=== PATIENT | male | born 1970 | race Caucasian/White ===

== ENCOUNTER 2018-01-22 10:51 | Inpatient (IN) | payer OTHER ==
[2018-01-22 11:58] VITALS: BMI 38.7
--- NOTE | 2018-01-22 13:59 | HP ---
CIWA Score - CIWA Score Nausea/Vomitin-Mild Nausea/No Vomiting Muscle Tremors: 4-Moderate,w/Arms Extend Anxiety: 4-Mod. Anxious/Guarded Agitation: 4-Moderately Restless Paroxysmal Sweats: 1-Minimal Palms Moist Orientation: 0-Oriented Tacttile Disturbances: 1-Very Mild Itch/Numbness Auditory Disturbances: 0-None Visual Disturbances: 0-None Headache: 1-Very Mild CIWA-Ar Total Score: 16 Admission ROS BHS - HPI Chief Complaint: alcohol withdrawal sx longest sobriety 2 years Allergies/Adverse Reactions: Allergies Allergy/AdvReac Type Severity Reaction Status Date / Time pork derived (porcine) AdvReac Vomiting Verified 01/22/18 12:02 NKDA Allergy Uncoded 01/22/18 12:02 History of Present Illness: 47 yeas old male with long history of alcohol nicotine dependence has hiv hypercholesterolemia few teeth left in mouth able to chew regular food has depression is admitted to detox Exam Limitations: No Limitations - Ebola screening Have you traveled outside of the country in the last 21 days: No Have you had contact with anyone from an Ebola affected area: No Have you been sick,other than usual withdrawal symptoms: No Do you have a fever: No - Review of Systems Constitutional: Changes in sleep, Weight Stable EENT: reports: Dental Problems (few teeth left in mouth) Respiratory: reports: SOB with Exertion Cardiac: reports: No Symptoms Reported GI: reports: Nausea, Poor Fluid Intake, Abdominal cramping : reports: No Symptoms Reported Musculoskeletal: reports: Back Pain Integumentary: reports: Rash (right arm) Neuro: reports: Tremors Endocrine: reports: No Symptoms Reported Hematology: reports: No Symptoms Reported Psychiatric: reports: Judgement Intact, Orientated x3, Anxious, Depressed Other Systems: Reviewed and Negative Patient History - Patient Medical History Hx Anemia: No Hx Asthma: No Hx Chronic Obstructive Pulmonary Disease (COPD): Yes Hx Cancer: No Hx Cardiac Disorders: No Hx Congestive Heart Failure: No Hx Hypertension: No Hx Hypercholesterolemia: No Hx Pacemaker: No HX Cerebrovascular Accident: No Hx Seizures: No Hx Dementia: No Hx Diabetes: No Hx Gastrointestinal Disorders: No Hx Liver Disease: No Hx Genitourinary Disorders: No Hx Sexually Transmitted Disorders: No Hx Renal Disease (ESRD): No Hx Thyroid Disease: No Hx Human Immunodeficiency Virus (HIV): Yes (diagnosed 1996 compliant with medication) Hx Hepatitis C: Yes Hx Depression: Yes Hx Suicide Attempt: No Hx Bipolar Disorder: No Hx Schizophrenia: No - Patient Surgical History Past Surgical History: Yes Hx Neurologic Surgery: No Hx Cataract Extraction: No (multiple eye surgery childhood) Hx Cardiac Surgery: No Hx Lung Surgery: No Hx Breast Surgery: No Hx Breast Biopsy: No Hx Abdominal Surgery: No Hx Appendectomy: No Hx Cholecystectomy: No Hx Genitourinary Surgery: No Hx Orthopedic Surgery: Yes (torn ligament right knee in 2006) Other Surgical History: bilateral inguinal hernia repair Anesthesia Reaction: No - PPD History Previous Implant?: Yes Documented Results: Negative w/o proof Implanted On Prior R Admission?: No PPD to be Administered?: Yes - Smoking Cessation Smoking history: Current every day smoker Have you smoked in the past 12 months: Yes Aproximately how many cigarettes per day: 20 Cigars Per Day: 0 Hx Chewing Tobacco Use: No Initiated information on smoking cessation: Yes 'Breaking Loose' booklet given: 01/22/18 - Substance & Tx. History Hx Alcohol Use: Yes Substance Use Type: Alcohol, Cocaine Hx Substance Use Treatment: Yes (2015) - Substances Abused Crack Route: Smoking Frequency: Daily Amount used: $40-50 Age of first use: 21 Date of Last Use: 01/21/18 Alcohol-beer Route: Oral Frequency: 3-6 times per week Amount used: 1-6 pk. (24 oz.) Age of first use: 10 Date of Last Use: 01/21/18 Family Disease History - Family Disease History Family Disease History: Diabetes: Grandparent, Other: Father (/hiv) Admission Physical Exam S - Vital Signs Vital Signs: Vital Signs - 24 hr 01/22/18 11:56 Temperature 97.2 F L Pulse Rate 84 Respiratory 20 Rate Blood Pressure 147/77 - Physical General Appearance: Yes: Appropriately Dressed, Mild Distress, Obese, Tremorous , Irritable, Sweating, Anxious HEENTM: Yes: Hearing grossly Normal, Normocephalic, Normal Voice, Other (few teeth lest) Respiratory: Yes: Chest Non-Tender, No Respiratory Distress, No Accessory Muscle Use, Hyperresonant, Inspiration Neck: Yes: Supple, Trachea in good position Breast: Yes: Breasts Symetrical, No Discharge Cardiology: Yes: Regular Rhythm, Regular Rate, S1, S2 Abdominal: Yes: Normal Bowel Sounds, Non Tender, Flat, Soft Genitourinary: Yes: Within Normal Limits Back: Yes: Normal Inspection Musculoskeletal: Yes: full range of Motion, Gait Steady, Back pain Extremities: Yes: Normal Inspection, Normal Range of Motion, Non-Tender, Tremors Neurological: Yes: Fully Oriented, Alert, Motor Strength 5/5, Normal Response, Depressed Affect Integumentary: Yes: Warm, Rash (right arm) Lymphatic: Yes: Within Normal Limits - Diagnostic (1) Alcohol dependence with uncomplicated withdrawal Current Visit: Yes Status: Acute (2) HIV (human immunodeficiency virus infection) Current Visit: Yes Status: Chronic Comment: brought own meds upon admission (3) Dermatitis Current Visit: Yes Status: Acute (4) COPD (chronic obstructive pulmonary disease) Current Visit: Yes Status: Chronic Qualifiers: COPD type: emphysema (5) External hemorrhoids Current Visit: Yes Status: Chronic (6) Nicotine dependence Current Visit: Yes Status: Acute Qualifiers: Nicotine product type: cigarettes Substance use status: in withdrawal Qualified Code(s): F17.213 - Nicotine dependence, cigarettes, with withdrawal (7) Depression (emotion) Current Visit: Yes Status: Suspected Qualifiers: Depression Type: dysthymia Qualified Code(s): F34.1 - Dysthymic disorder Cleared for Admission S - Detox or Rehab [facility] Level of Care: Medically Managed Detox Regimen/Protocol: Librium [facility] Breath Alcohol Content Breath Alcohol Content: 0 Urine Drug Screen - Results Drug Screen Negative: No Urine Drug Screen Results: MARILYNN-Cocaine
[2018-01-22] MEDS ORDERED: ACETAMINOPHEN 325 MG TABLET (FP) PO PRN (14:06)
[2018-01-22] MEDS ORDERED: MAGNESIUM CITRATE 300 ML BOTTLE PO PRN (14:06)
[2018-01-22] MEDS ORDERED: MAG HYDROX/AL HYDROX/SIMETH 30 ML UNIT-DOSE CUP PO PRN (14:06)
[2018-01-22] MEDS ORDERED: MAGNESIUM HYDROX 2400MG/30ML ORAL SUSPENSION 30 ML CUP PO PRN (14:06)
[2018-01-22] MEDS ORDERED: guaiFENesin/D-METHORPHAN HB 10 ML UNIT-DOSE CUPS PO PRN (14:06)
[2018-01-22] MEDS ORDERED: NICOTINE POLACRILEX 4 MG GUM BUC PRN (14:06)
[2018-01-22] MEDS ORDERED: MENTHOL/PHENOL 1 EACH UD MM PRN (14:06)
[2018-01-22] MEDS ORDERED: P-EPHED 60MG/TRIPROLIDI 2.5MG TABLET PO PRN (14:06)
[2018-01-22] MEDS ORDERED: LOPERAMIDE HCL 2 MG CAPSULE PO PRN (14:06)
[2018-01-22] MEDS ORDERED: IBUPROFEN 400 MG TABLET (FP) PO PRN (14:06)
[2018-01-22] MEDS ORDERED: chlordiazePOXIDE HCL 25 MG CAPSULE PO PRN (14:06)
[2018-01-22] MEDS ORDERED: ALBUTEROL SO4 8 GM HFA INHALER IH PRN (14:11)
[2018-01-22] MEDS ORDERED: BENZOCAINE 28 GM HEMORRHOIDAL OINTMENT PR SCH (14:15)
[2018-01-22] MEDS: NICOTINE 21 MG/24 HOURS TOPICAL PATCH TD SCH (17:01)
[2018-01-22] MEDS: chlordiazePOXIDE HCL 25 MG CAPSULE PO SCH ×2 (17:01→23:37)
[2018-01-22 22:59] LABS: URINE APPEARANCE TURBID; URINE BILIRUBIN NEGATIVE (<2.0 mg/dL); URINE COLOR YELLOW; URINE GLUCOSE (UA) NEGATIVE (NEGATIVE); URINE KETONE NEGATIVE (NEGATIVE); URINE LEUK ESTERASE NEGATIVE (NEGATIVE); URINE NITRITE NEGATIVE (NEGATIVE); URINE UROBILINOGEN NEGATIVE mg/dL (0.2-1.0)
[2018-01-22 23:17] LABS: URINE PROTEIN 1+ (NEGATIVE)
[2018-01-22 23:20] LABS: URINE MUCUS FEW
[2018-01-22] MEDS: CLOTRIMAZOLE 1% CREAM 15 GM TUBE TP SCH (23:36)
[2018-01-22] MEDS: THIAMINE HCL 100 MG TABLET (FP) PO SCH (23:36)
[2018-01-22] MEDS: BENZOCAINE 28 GM HEMORRHOIDAL OINTMENT PR SCH (23:36)
[2018-01-23] MEDS: chlordiazePOXIDE HCL 25 MG CAPSULE PO SCH ×4 (05:55→23:05)
[2018-01-23] MEDS: ATAZANAVIR SO4 300 MG CAPSULE PO SCH (07:50)
[2018-01-23] MEDS: RITONAVIR 100 MG TABLET PO SCH (07:51)
[2018-01-23] MEDS: EMTRICITABINE 200MG/TENOFOVIR 300MG PO SCH (07:52)
[2018-01-23 10:01] LABS: HEMATOCRIT 38.8 % (35.4-49); HEMOGLOBIN 13.1 GM/dL (11.7-16.9); MCH 30.2 pg (25.7-33.7); MCHC 33.8 g/dl (32.0-35.9); MEAN CELL VOLUME 89.5 fl (80-96); MEAN PLT VOLUME 9.5 fl (7.5-11.1); PLATELET COUNT 262 K/MM3 (134-434); RBC 4.33 M/mm3 (4.00-5.60); RDW 14.7 % (11.9-15.9); WHITE BLOOD COUNT 7.6 K/mm3 (4.0-10.0)
--- NOTE | 2018-01-23 10:24 | PN ---
S CIWA - CIWA Score Nausea/Vomitin Muscle Tremors: 2 Anxiety: 2 Agitation: 2 Paroxysmal Sweats: 3 Orientation: 0-Oriented Tacttile Disturbances: 2-Mild Itch/Numbness/Burn Auditory Disturbances: 0-None Visual Disturbances: 0-None Headache: 0-None Present CIWA-Ar Total Score: 13 BHS Progress Note (SOAP) Subjective: interrupted sleep, sweats, mild shakes Objective: 01/23/18 10:20 Vital Signs Temperature 97.9 F 01/23/18 09:50 Pulse Rate 80 01/23/18 09:50 Respiratory Rate 18 01/23/18 09:50 Blood Pressure 137/76 01/23/18 09:50 O2 Sat by Pulse Oximetry (%) Laboratory Tests 01/22/18 01/23/18 21:19 06:00 WBC 7.6 RBC 4.33 Hgb 13.1 Hct 38.8 MCV 89.5 MCH 30.2 MCHC 33.8 RDW 14.7 Plt Count 262 MPV 9.5 Urine Color Yellow Urine Appearance Turbid Urine pH 5.0 Ur Specific [place] 1.025 Urine Protein 1+ H Urine Glucose (UA) Negative Urine Ketones Negative Urine Blood Negative Urine Nitrite Negative Urine Bilirubin Negative Urine Urobilinogen Negative Ur Leukocyte Esterase Negative Urine WBC (Auto) 31 Urine RBC (Auto) None Urine Mucus Few pending labs pt lying in bed , cooperating but some irritability in nad Assessment: 01/23/18 10:22 withdrawal sx;s hiv copd Plan: cont. detox increase fluids cont arv f/up pending labs
[2018-01-23] MEDS: PRENATAL VITAMINS W/ FOLIC ACID TABLET (FP) PO SCH (10:35)
[2018-01-23] MEDS: ATORVASTATIN CA 10 MG TABLET (FP) PO SCH (10:37)
[2018-01-23] MEDS: CLOTRIMAZOLE 1% CREAM 15 GM TUBE TP SCH ×2 (10:37→23:05)
[2018-01-23] MEDS: NICOTINE 21 MG/24 HOURS TOPICAL PATCH TD SCH (10:38)
[2018-01-23 10:51] LABS: CHLORIDE 105 mmol/L (98-107); SODIUM 141 mmol/L (136-145)
[2018-01-23 11:00] LABS: ALBUMIN 3.6 g/dl (3.4-5.0); ALK PHOS 87 U/L (45-117); ANION GAP 9 (8-16); BILIRUBIN,TOTAL 1.3 mg/dL (0.2-1.0); BLOOD UREA NITROGEN 16 mg/dL (7-18); CALCIUM 8.8 mg/dL (8.5-10.1); CO2 27 mmol/L (21-32); CREATININE 1.5 mg/dL (0.7-1.3); GLUCOSE,RANDOM 107 mg/dL (74-106); SGOT/AST 40 U/L (15-37); SGPT/ALT 67 U/L (12-78); TOT PROT 7.2 g/dl (6.4-8.2)
--- NOTE | 2018-01-23 13:01 | CONSULT ---
[facility] Psychiatric Consult - Data Date of interview: 01/23/18 Admission source: [facility] Identifying data: This is 47 years old single unemployed male, childless,supported by [facility],residing in [facility] in the [place]. Substance Abuse History: Patient reports drinking since 10 yo (couple cans of beer daily),cocaine/crack since 21 yo. Medical History: Significant for HIV+,COPD,Dermatitis,Torn ligament in R knee. Psychiatric History: No psychiatric history reported.Patient was seen by therapist to address his drug abuse problems. Physical/Sexual Abuse/Trauma History: denies Mental Status Exam - Mental Status Exam Alert and Oriented to: Time, Place, Person Cognitive Function: Grossly Intact Patient Appearance: Well Groomed Mood: Euthymic Affect: Appropriate, Mood Congruent Patient Behavior: Cooperative Speech Pattern: Clear Voice Loudness: Normal Thought Process: Goal Oriented Thought Disorder: Not Present Hallucinations: Denies Suicidal Ideation: Denies Homicidal Ideation: Denies Insight/Judgement: Fair Sleep: Fair Appetite: Fair Muscle strength/Tone: Normal Gait/Station: Normal Psychiatric Findings - Problem List (Simon 1, 2,3) (1) COPD (chronic obstructive pulmonary disease) Current Visit: Yes Status: Chronic Qualifiers: COPD type: emphysema (2) Dermatitis Current Visit: Yes Status: Chronic (3) External hemorrhoids Current Visit: Yes Status: Chronic (4) HIV (human immunodeficiency virus infection) Current Visit: Yes Status: Chronic Comment: brought own meds upon admission (5) Nicotine dependence Current Visit: Yes Status: Chronic Qualifiers: Nicotine product type: cigarettes Substance use status: in withdrawal Qualified Code(s): F17.213 - Nicotine dependence, cigarettes, with withdrawal (6) Alcohol dependence Current Visit: Yes Status: Chronic (7) Substance induced mood disorder Current Visit: Yes Status: Acute (8) Cocaine dependence Current Visit: Yes Status: Chronic - Initial Treatment Plan Initial Treatment Plan: Will monitor progress.
[2018-01-23] MEDS: THIAMINE HCL 100 MG TABLET (FP) PO SCH (23:05)
[2018-01-23] MEDS: BENZOCAINE 28 GM HEMORRHOIDAL OINTMENT PR SCH (23:05)
[2018-01-24] MEDS: chlordiazePOXIDE HCL 25 MG CAPSULE PO SCH ×2 (05:21→10:22)
[2018-01-24] MEDS ORDERED: cloNIDine HCL 0.1 MG TABLET PO ONE (07:38)
[2018-01-24] MEDS: RITONAVIR 100 MG TABLET PO SCH (08:24)
[2018-01-24] MEDS: ATAZANAVIR SO4 300 MG CAPSULE PO SCH (08:24)
[2018-01-24] MEDS: EMTRICITABINE 200MG/TENOFOVIR 300MG PO SCH (08:26)
--- NOTE | 2018-01-24 09:04 | EKG ---
Test Reason : Blood Pressure : / mmHG Vent. Rate : 079 BPM Atrial Rate : 079 BPM P-R Int : 138 ms QRS Dur : 092 ms QT Int : 368 ms P-R-T Axes : 057 069 043 degrees QTc Int : 421 ms SINUS RHYTHM WITH PREMATURE ATRIAL COMPLEXES CANNOT RULE OUT ANTERIOR INFARCT , AGE UNDETERMINED ABNORMAL ECG NO PREVIOUS ECGS AVAILABLE Confirmed by HERBER SINGLETON MD ([id number]) on 01/24/2018 9:04:06 AM Referred By: Confirmed By:HERBER SINGLETON MD
[2018-01-24] MEDS: PRENATAL VITAMINS W/ FOLIC ACID TABLET (FP) PO SCH (10:22)
[2018-01-24] MEDS: ATORVASTATIN CA 10 MG TABLET (FP) PO SCH (10:22)
[2018-01-24] MEDS: NICOTINE 21 MG/24 HOURS TOPICAL PATCH TD SCH (10:24)
[2018-01-24] MEDS: CLOTRIMAZOLE 1% CREAM 15 GM TUBE TP SCH ×2 (10:24→22:38)
--- NOTE | 2018-01-24 13:02 | PN ---
S CIWA - CIWA Score Nausea/Vomitin Muscle Tremors: 3 Anxiety: 3 Agitation: 3 Paroxysmal Sweats: 1-Minimal Palms Moist Orientation: 0-Oriented Tacttile Disturbances: 1-Very Mild Itch/Numbness Auditory Disturbances: 1-Very Mild Visual Disturbances: 0-None Headache: 2-Mild CIWA-Ar Total Score: 17 BHS Progress Note (SOAP) Subjective: alert,irritable,anxious,interrupted sleep,tremor Objective: 01/24/18 13:00 Vital Signs Temperature 97.5 F L 01/24/18 10:01 Pulse Rate 86 01/24/18 10:01 Respiratory Rate 18 01/24/18 10:01 Blood Pressure 124/79 01/24/18 10:01 O2 Sat by Pulse Oximetry (%) 01/24/18 13:00 Laboratory Last Values WBC 7.6 K/mm3 (4.0-10.0) 01/23/18 06:00 RBC 4.33 M/mm3 (4.00-5.60) 01/23/18 06:00 Hgb 13.1 GM/dL (11.7-16.9) 01/23/18 06:00 Hct 38.8 % (35.4-49) 01/23/18 06:00 MCV 89.5 fl (80-96) 01/23/18 06:00 MCH 30.2 pg (25.7-33.7) 01/23/18 06:00 MCHC 33.8 g/dl (32.0-35.9) 01/23/18 06:00 RDW 14.7 % (11.9-15.9) 01/23/18 06:00 Plt Count 262 K/MM3 (134-434) 01/23/18 06:00 MPV 9.5 fl (7.5-11.1) 01/23/18 06:00 Sodium 141 mmol/L (136-145) 01/23/18 06:00 Potassium 4.0 mmol/L (3.5-5.1) 01/23/18 06:00 Chloride 105 mmol/L (98-107) 01/23/18 06:00 Carbon Dioxide 27 mmol/L (21-32) 01/23/18 06:00 Anion Gap 9 (8-16) 01/23/18 06:00 BUN 16 mg/dL (7-18) 01/23/18 06:00 Creatinine 1.5 mg/dL (0.7-1.3) H 01/23/18 06:00 Creat Clearance w eGFR 50.16 (>60) 01/23/18 06:00 POC Glucometer 97 UNITS (80-120) 01/24/18 06:45 Random Glucose 107 mg/dL (74-106) H 01/23/18 06:00 Calcium 8.8 mg/dL (8.5-10.1) 01/23/18 06:00 Total Bilirubin 1.3 mg/dL (0.2-1.0) H 01/23/18 06:00 AST 40 U/L (15-37) H D 01/23/18 06:00 ALT 67 U/L (12-78) D 01/23/18 06:00 Alkaline Phosphatase 87 U/L (45-117) 01/23/18 06:00 Total Protein 7.2 g/dl (6.4-8.2) 01/23/18 06:00 Albumin 3.6 g/dl (3.4-5.0) 01/23/18 06:00 Urine Color Yellow 01/22/18 21:19 Urine Appearance Turbid 01/22/18 21:19 Urine pH 5.0 (5.0-8.0) 01/22/18 21:19 Ur Specific [place] 1.025 (1.001-1.035) 01/22/18 21:19 Urine Protein 1+ (NEGATIVE) H 01/22/18 21:19 Urine Glucose (UA) Negative (NEGATIVE) 01/22/18 21:19 Urine Ketones Negative (NEGATIVE) 01/22/18 21:19 Urine Blood Negative (NEGATIVE) 01/22/18 21:19 Urine Nitrite Negative (NEGATIVE) 01/22/18 21:19 Urine Bilirubin Negative (<2.0 mg/dL) 01/22/18 21:19 Urine Urobilinogen Negative mg/dL (0.2-1.0) 01/22/18 21:19 Ur Leukocyte Esterase Negative (NEGATIVE) 01/22/18 21:19 Urine WBC (Auto) 31 /hpf (3-5) 01/22/18 21:19 Urine RBC (Auto) None /hpf (0-3) 01/22/18 21:19 Urine Mucus Few 01/22/18 21:19 Assessment: 01/24/18 13:01 withdrawal symptom Plan: continue detox,repeat ua
[2018-01-24] MEDS: chlordiazePOXIDE 5 MG CAPSULE PO SCH ×2 (17:28→22:36)
[2018-01-24] MEDS ORDERED: chlordiazePOXIDE 5 MG CAPSULE PO ONE (18:15)
[2018-01-24 18:53] LABS: URINE APPEARANCE CLOUDY; URINE BILIRUBIN NEGATIVE (<2.0 mg/dL); URINE COLOR YELLOW; URINE GLUCOSE (UA) 2+ (NEGATIVE); URINE KETONE NEGATIVE (NEGATIVE); URINE LEUK ESTERASE NEGATIVE (NEGATIVE); URINE NITRITE NEGATIVE (NEGATIVE); URINE PROTEIN NEGATIVE (NEGATIVE); URINE UROBILINOGEN NEGATIVE mg/dL (0.2-1.0)
[2018-01-24] MEDS: THIAMINE HCL 100 MG TABLET (FP) PO SCH (22:36)
[2018-01-24] MEDS: MELATONIN 5 MG TABLETS PO PRN (22:36)
[2018-01-25] MEDS: chlordiazePOXIDE 5 MG CAPSULE PO SCH ×2 (06:06→10:08)
[2018-01-25] MEDS: EMTRICITABINE 200MG/TENOFOVIR 300MG PO SCH (08:44)
[2018-01-25] MEDS: RITONAVIR 100 MG TABLET PO SCH (08:44)
[2018-01-25] MEDS: ATAZANAVIR SO4 300 MG CAPSULE PO SCH (08:44)
--- NOTE | 2018-01-25 08:56 | EKG ---
Test Reason : Blood Pressure : / mmHG Vent. Rate : 083 BPM Atrial Rate : 083 BPM P-R Int : 144 ms QRS Dur : 100 ms QT Int : 378 ms P-R-T Axes : 066 070 039 degrees QTc Int : 444 ms NORMAL SINUS RHYTHM NORMAL ECG WHEN COMPARED WITH ECG OF 22-JAN-2018 16:32, PREMATURE ATRIAL COMPLEXES ARE NO LONGER PRESENT Confirmed by HERBER SINGLETON MD ([id number]) on 01/25/2018 8:56:32 AM Referred By: Confirmed By:HERBER SINGLETON MD
[2018-01-25] MEDS: ATORVASTATIN CA 10 MG TABLET (FP) PO SCH (10:07)
[2018-01-25] MEDS: CLOTRIMAZOLE 1% CREAM 15 GM TUBE TP SCH ×2 (10:08→22:04)
[2018-01-25] MEDS: PRENATAL VITAMINS W/ FOLIC ACID TABLET (FP) PO SCH (10:08)
[2018-01-25] MEDS: NICOTINE 21 MG/24 HOURS TOPICAL PATCH TD SCH (10:09)
--- NOTE | 2018-01-25 11:05 | PN ---
BHS Progress Note (SOAP) Subjective: feeling better less sweat no tremor sleep better at night social with peers in day room Objective: 01/25/18 11:03 Vital Signs Temperature 97.7 F 01/25/18 10:47 Pulse Rate 70 01/25/18 10:47 Respiratory Rate 18 01/25/18 10:47 Blood Pressure 120/61 01/25/18 10:47 O2 Sat by Pulse Oximetry (%) Laboratory Last Values WBC 7.6 K/mm3 (4.0-10.0) 01/23/18 06:00 RBC 4.33 M/mm3 (4.00-5.60) 01/23/18 06:00 Hgb 13.1 GM/dL (11.7-16.9) 01/23/18 06:00 Hct 38.8 % (35.4-49) 01/23/18 06:00 MCV 89.5 fl (80-96) 01/23/18 06:00 MCH 30.2 pg (25.7-33.7) 01/23/18 06:00 MCHC 33.8 g/dl (32.0-35.9) 01/23/18 06:00 RDW 14.7 % (11.9-15.9) 01/23/18 06:00 Plt Count 262 K/MM3 (134-434) 01/23/18 06:00 MPV 9.5 fl (7.5-11.1) 01/23/18 06:00 Sodium 141 mmol/L (136-145) 01/23/18 06:00 Potassium 4.0 mmol/L (3.5-5.1) 01/23/18 06:00 Chloride 105 mmol/L (98-107) 01/23/18 06:00 Carbon Dioxide 27 mmol/L (21-32) 01/23/18 06:00 Anion Gap 9 (8-16) 01/23/18 06:00 BUN 16 mg/dL (7-18) 01/23/18 06:00 Creatinine 1.5 mg/dL (0.7-1.3) H 01/23/18 06:00 Creat Clearance w eGFR 50.16 (>60) 01/23/18 06:00 POC Glucometer 97 UNITS (80-120) 01/24/18 06:45 Random Glucose 107 mg/dL (74-106) H 01/23/18 06:00 Calcium 8.8 mg/dL (8.5-10.1) 01/23/18 06:00 Total Bilirubin 1.3 mg/dL (0.2-1.0) H 01/23/18 06:00 AST 40 U/L (15-37) H D 01/23/18 06:00 ALT 67 U/L (12-78) D 01/23/18 06:00 Alkaline Phosphatase 87 U/L (45-117) 01/23/18 06:00 Total Protein 7.2 g/dl (6.4-8.2) 01/23/18 06:00 Albumin 3.6 g/dl (3.4-5.0) 01/23/18 06:00 Urine Color Yellow 01/24/18 Unknown Urine Appearance Cloudy 01/24/18 Unknown Urine pH 7.0 (5.0-8.0) D 01/24/18 Unknown Ur Specific [place] 1.016 (1.001-1.035) 01/24/18 Unknown Urine Protein Negative (NEGATIVE) 01/24/18 Unknown Urine Glucose (UA) 2+ (NEGATIVE) H 01/24/18 Unknown Urine Ketones Negative (NEGATIVE) 01/24/18 Unknown Urine Blood Negative (NEGATIVE) 01/24/18 Unknown Urine Nitrite Negative (NEGATIVE) 01/24/18 Unknown Urine Bilirubin Negative (<2.0 mg/dL) 01/24/18 Unknown Urine Urobilinogen Negative mg/dL (0.2-1.0) 01/24/18 Unknown Ur Leukocyte Esterase Negative (NEGATIVE) 01/24/18 Unknown Urine WBC (Auto) 31 /hpf (3-5) 01/22/18 21:19 Urine RBC (Auto) None /hpf (0-3) 01/22/18 21:19 Urine Mucus Few 01/22/18 21:19 RPR Titer Nonreactive (NONREACTIVE) 01/23/18 06:00 lab noted health teaching on alcohol misuse related health issues Assessment: 01/25/18 11:04 mild alcohol withdrawal sx Plan: medically supervised detox
[2018-01-25] MEDS: chlordiazePOXIDE HCL 10 MG CAPSULE PO SCH ×2 (18:00→22:03)
[2018-01-25] MEDS: BENZOCAINE 28 GM HEMORRHOIDAL OINTMENT PR SCH (22:03)
[2018-01-25] MEDS: THIAMINE HCL 100 MG TABLET (FP) PO SCH (22:03)
[2018-01-25] MEDS: MELATONIN 5 MG TABLETS PO PRN (22:04)
[2018-01-26] MEDS: chlordiazePOXIDE HCL 10 MG CAPSULE PO SCH (06:17)
[2018-01-26 07:10] VITALS: BP 132/89; PULSE 87; TEMP 97.7
--- NOTE | 2018-01-26 10:09 | PN ---
S Progress Note (SOAP) Subjective: alert,no complaint Objective: 01/26/18 10:07 Vital Signs Temperature 97.7 F 01/26/18 07:09 Pulse Rate 87 01/26/18 07:09 Respiratory Rate 18 01/26/18 07:09 Blood Pressure 132/89 01/26/18 07:09 O2 Sat by Pulse Oximetry (%) Assessment: 01/26/18 10:08 detox completed,no withdrawal symptom Plan: discharge today,follow up with after care program as arrangement
--- NOTE | 2018-01-26 10:12 | PN ---
S Progress Note (SOAP) Subjective: alert,no complaint Objective: 01/26/18 10:11 Vital Signs Temperature 97.7 F 01/26/18 07:09 Pulse Rate 87 01/26/18 07:09 Respiratory Rate 18 01/26/18 07:09 Blood Pressure 132/89 01/26/18 07:09 O2 Sat by Pulse Oximetry (%) Assessment: 01/26/18 10:11 detox completed,no withdrawal symptom Plan: discharge today,follow up with after care program as arrangement
--- NOTE | 2018-01-26 10:17 | DS ---
[facility] Detox Discharge Summary Admission Date: 01/22/18 Discharge Date: 01/26/18 - History Present History: Alcohol Dependence Additional Comments: follow up with after care program as arrangement and primary cre provider as arrangement Pertinent Past History: copd hiv - Physical Exam Results Vital Signs: Vital Signs Temperature 97.7 F 01/26/18 07:09 Pulse Rate 87 01/26/18 07:09 Respiratory Rate 18 01/26/18 07:09 Blood Pressure 132/89 01/26/18 07:09 O2 Sat by Pulse Oximetry (%) Pertinent Admission Physical Exam Findings: withdrawal signs and symptom Vital Signs Temperature 97.7 F 01/26/18 07:09 Pulse Rate 87 01/26/18 07:09 Respiratory Rate 18 01/26/18 07:09 Blood Pressure 132/89 01/26/18 07:09 O2 Sat by Pulse Oximetry (%) Laboratory Last Values WBC 7.6 K/mm3 (4.0-10.0) 01/23/18 06:00 RBC 4.33 M/mm3 (4.00-5.60) 01/23/18 06:00 Hgb 13.1 GM/dL (11.7-16.9) 01/23/18 06:00 Hct 38.8 % (35.4-49) 01/23/18 06:00 MCV 89.5 fl (80-96) 01/23/18 06:00 MCH 30.2 pg (25.7-33.7) 01/23/18 06:00 MCHC 33.8 g/dl (32.0-35.9) 01/23/18 06:00 RDW 14.7 % (11.9-15.9) 01/23/18 06:00 Plt Count 262 K/MM3 (134-434) 01/23/18 06:00 MPV 9.5 fl (7.5-11.1) 01/23/18 06:00 Sodium 141 mmol/L (136-145) 01/23/18 06:00 Potassium 4.0 mmol/L (3.5-5.1) 01/23/18 06:00 Chloride 105 mmol/L (98-107) 01/23/18 06:00 Carbon Dioxide 27 mmol/L (21-32) 01/23/18 06:00 Anion Gap 9 (8-16) 01/23/18 06:00 BUN 16 mg/dL (7-18) 01/23/18 06:00 Creatinine 1.5 mg/dL (0.7-1.3) H 01/23/18 06:00 Creat Clearance w eGFR 50.16 (>60) 01/23/18 06:00 POC Glucometer 97 UNITS (80-120) 01/24/18 06:45 Random Glucose 107 mg/dL (74-106) H 01/23/18 06:00 Calcium 8.8 mg/dL (8.5-10.1) 01/23/18 06:00 Total Bilirubin 1.3 mg/dL (0.2-1.0) H 01/23/18 06:00 AST 40 U/L (15-37) H D 01/23/18 06:00 ALT 67 U/L (12-78) D 01/23/18 06:00 Alkaline Phosphatase 87 U/L (45-117) 01/23/18 06:00 Total Protein 7.2 g/dl (6.4-8.2) 01/23/18 06:00 Albumin 3.6 g/dl (3.4-5.0) 01/23/18 06:00 Urine Color Yellow 01/24/18 Unknown Urine Appearance Cloudy 01/24/18 Unknown Urine pH 7.0 (5.0-8.0) D 01/24/18 Unknown Ur Specific [place] 1.016 (1.001-1.035) 01/24/18 Unknown Urine Protein Negative (NEGATIVE) 01/24/18 Unknown Urine Glucose (UA) 2+ (NEGATIVE) H 01/24/18 Unknown Urine Ketones Negative (NEGATIVE) 01/24/18 Unknown Urine Blood Negative (NEGATIVE) 01/24/18 Unknown Urine Nitrite Negative (NEGATIVE) 01/24/18 Unknown Urine Bilirubin Negative (<2.0 mg/dL) 01/24/18 Unknown Urine Urobilinogen Negative mg/dL (0.2-1.0) 01/24/18 Unknown Ur Leukocyte Esterase Negative (NEGATIVE) 01/24/18 Unknown Urine WBC (Auto) 31 /hpf (3-5) 01/22/18 21:19 Urine RBC (Auto) None /hpf (0-3) 01/22/18 21:19 Urine Mucus Few 01/22/18 21:19 RPR Titer Nonreactive (NONREACTIVE) 01/23/18 06:00 - Treatment Hospital Course: Detox Protocol Followed, Detoxed Safely, Responded well, Discharged Condition Good Patient has Accepted a Rehab Referral to: declined - Medication Discharge Medications: Ambulatory Orders Atazanavir [Reyataz -] 300 mg PO DAILY 12/11/15 Emtricitabine/Tenofovir [Truvada -] 1 tab PO DAILY 12/11/15 Ritonavir [Norvir -] 100 mg PO DAILY 12/11/15 Atorvastatin Calcium [Lipitor] 10 mg PO DAILY #30 tablet 01/25/18 - Diagnosis (1) Alcohol dependence with uncomplicated withdrawal Status: Chronic (2) COPD (chronic obstructive pulmonary disease) Status: Chronic Qualifiers: COPD type: emphysema (3) HIV (human immunodeficiency virus infection) Status: Chronic - AMA Did Patient Leave Against Medical Advice: Yes
== END 2018-01-26 08:50 | disposition home or self-care (01) | DRG 774 ==
LOC: YASAS 10:51 → Y6N 14:24
PROVIDERS: ADMIT Surgery; ATTEND Surgery
PROC: HZ2ZZZZ Detoxification Services for Substance Abuse Treatment (ICD-10-PCS; principal; 2018-01-22)
DX: F10.230 Alcohol dependence with withdrawal, uncomplicated (principal); F14.20 Cocaine dependence, uncomplicated; F17.213 Nicotine dependence, cigarettes, with withdrawal; F19.24 Other psychoactive substance dependence with psychoactive substance-induced mood disorder; F34.1 Dysthymic disorder; Z21 Asymptomatic human immunodeficiency virus [HIV] infection status; J44.9 Chronic obstructive pulmonary disease, unspecified; L30.9 Dermatitis, unspecified; K64.4 Residual hemorrhoidal skin tags; E66.9 Obesity, unspecified; Z68.38 Body mass index [BMI] 38.0-38.9, adult; Z91.018 Allergy to other foods
CPT/HCPCS: 36415; 80053; 81003; 81015; 82962; 85027; 86593; 93005; 93010; J0735

== ENCOUNTER 2022-11-23 21:09 | Inpatient (IN) | payer OTHER ==
[2022-11-23 21:42] VITALS: BMI 27.8
[2022-11-24] MEDS ORDERED: BENZONATATE 200 MG CAPSULE PO PRN (02:55)
[2022-11-24] MEDS ORDERED: IBUPROFEN 600 MG TABLET (FP) PO PRN (02:55)
[2022-11-24] MEDS ORDERED: ACETAMINOPHEN 325 MG TABLET (FP) PO PRN (02:55)
[2022-11-24] MEDS ORDERED: MAGNESIUM HYDROX 2400MG/30ML ORAL SUSPENSION 30 ML CUP PO PRN (02:55)
[2022-11-24] MEDS ORDERED: COLLOIDAL OATMEAL 1 BAR EACH TP PRN (02:55)
[2022-11-24] MEDS ORDERED: LOPERAMIDE HCL 2 MG CAPSULE PO PRN (02:55)
[2022-11-24] MEDS ORDERED: BENZOCAINE/MENTHOL (CHLORASEPTIC ) LOZENGE MM PRN (02:55)
[2022-11-24] MEDS ORDERED: AMMONIUM LACTATE 12% LOTION 225 GM BOTTLE TP PRN (02:55)
[2022-11-24] MEDS ORDERED: MAG HYDROX/AL HYDROX/SIMETH 30 ML UNIT-DOSE CUP PO PRN (02:55)
[2022-11-24] MEDS ORDERED: POLYETHYLENE GLYCOL (HEALTHYLAX) 3350 17 GM PACKET PO PRN (02:55)
[2022-11-24] MEDS ORDERED: IBUPROFEN 400 MG TABLET (FP) PO PRN (02:55)
[2022-11-24] MEDS ORDERED: guaiFENesin 600 MG TABLET.ER (FP) PO PRN (02:55)
[2022-11-24] MEDS ORDERED: NALOXONE HCL 0.4 MG/ML VIAL IM PRN (02:55)
[2022-11-24] MEDS ORDERED: NICOTINE 10 MG CARTRIDGE (INHALER) IH PRN (02:55)
[2022-11-24] MEDS ORDERED: NALOXONE HCL (KLOXXADO) 8 MG SPRAY NS PRN (02:55)
[2022-11-24] MEDS ORDERED: TUBERCULIN PPD 5 TU/0.1ML SYRINGE (IN PATIENT USE ONLY) ID ONE (03:30)
[2022-11-24 04:24] VITALS: RESP 18
[2022-11-24] MEDS: hydrOXYzine PAMOATE 25 MG CAPSULE (FP) PO PRN ×2 (06:39→13:33)
[2022-11-24] MEDS: PRENATAL VITAMINS W/ FOLIC ACID TABLET (FP) PO SCH (10:40)
[2022-11-24] MEDS: NICOTINE 21 MG/24 HOURS TOPICAL PATCH TD SCH (10:40)
[2022-11-24 11:02] LABS: POTASSIUM 3.8 mmol/L (3.5-5.1)
[2022-11-24 11:04] LABS: HEMATOCRIT 40.7 % (35.4-49); HEMOGLOBIN 13.7 GM/dL (11.7-16.9); MCH 29.3 pg (25.7-33.7); MCHC 33.6 g/dl (32.0-35.9); MEAN CELL VOLUME 87.1 fl (80-96); MEAN PLT VOLUME 9.3 fl (7.5-11.1); PLATELET COUNT 220 10^3/uL (134-434); RBC 4.67 M/mm3 (4.00-5.60); RDW 14.9 % (11.9-15.9); WHITE BLOOD COUNT 6.6 K/mm3 (4.0-10.0)
[2022-11-24 11:06] LABS: ALBUMIN 3.4 g/dl (3.4-5.0)
[2022-11-24 11:09] LABS: CREATININE 0.9 mg/dL (0.55-1.3)
[2022-11-24 11:11] LABS: BILIRUBIN,TOTAL 0.3 mg/dL (0.2-1); TOT PROT 7.3 g/dl (6.4-8.2)
[2022-11-24] MEDS ORDERED: cloNIDine HCL 0.1 MG TABLET PO ONE (21:01)
[2022-11-24] MEDS ORDERED: MELATONIN 5 MG TABLETS PO SCH (22:00)
[2022-11-24] MEDS ORDERED: THIAMINE HCL 100 MG TABLET (FP) PO SCH (22:00)
[2022-11-25 07:25] VITALS: TEMP 97.5
[2022-11-25 08:58] VITALS: BP 158/89; PULSE 75
[2022-11-25] MEDS ORDERED: cloNIDine HCL 0.1 MG TABLET PO PRN (09:53)
[2022-11-25] MEDS: PRENATAL VITAMINS W/ FOLIC ACID TABLET (FP) PO SCH (10:03)
[2022-11-25] MEDS: NICOTINE 21 MG/24 HOURS TOPICAL PATCH TD SCH (10:03)
== END 2022-11-25 10:45 | disposition left against medical advice (07) | DRG 770 ==
LOC: YASAS 21:09 → Y3W 11-24 03:20
PROVIDERS: ADMIT Allergy & Immunology; ATTEND Psychiatry & Neurology Pain Medicine
PROC: HZ42ZZZ Group Counseling for Substance Abuse Treatment, Cognitive-Behavioral (ICD-10-PCS; principal; 2022-11-24)
DX: F10.20 Alcohol dependence, uncomplicated (principal); F14.20 Cocaine dependence, uncomplicated; F17.210 Nicotine dependence, cigarettes, uncomplicated; F34.1 Dysthymic disorder; F19.24 Other psychoactive substance dependence with psychoactive substance-induced mood disorder; Z21 Asymptomatic human immunodeficiency virus [HIV] infection status; J43.9 Emphysema, unspecified; I10 Essential (primary) hypertension; E78.2 Mixed hyperlipidemia; B18.2 Chronic viral hepatitis C; Z56.0 Unemployment, unspecified; Z59.00 Homelessness unspecified
CPT/HCPCS: 36415; 80053; 85027; 86780; 87635; 93005; 93010